=== PATIENT | male | born 1965 | race Caucasian/White ===

== ENCOUNTER 2024-11-10 14:09 | Inpatient (IN) | payer OTHER ==
[2024-11-10] VITALS (36 sets, daily range): BP systolic 115–187; BP diastolic 79–159; PULSE 90–122; RESP 17–48; TEMP 36.6–37.1408; O2SAT 87–100
[~2024-11-10] VITALS: Ht 170.2 cm; Wt 102.5 kg
[2024-11-10] MEDS: METOPROLOL TARTRATE 5MG/5ML VIAL IV ONE (14:21)
[2024-11-10] MEDS: METOPROLOL TARTRATE 5MG/5ML VIAL IV STA (14:30)
[2024-11-10] MEDS: HEPARIN 5000 UNITS/ML VIAL IV ONE (14:30)
[2024-11-10 14:39] LABS: BASOPHILS % 0.4 % (0.0-2.0); EOSINOPHILS % 0.2 % (0.0-5.0); HEMATOCRIT. 36.3 % (42.0-52.0); HEMOGLOBIN. 12.2 g/dL (14.0-18.0); LYMPHOCYTES % 16.9 % (20.0-50.0); MEAN PLATELET VOLUME 8.4 fl (7.4-10.4); MONOCYTES % 8.2 % (2.0-8.0); NEUTROPHILS % 74.3 % (40.0-76.0); PLATELET 366 x1000/uL (130-400); RED BLOOD CELL COUNT 4.41 mill/uL (4.7-6.1); RED CELL DISTRIBUTION WIDTH 14.1 % (11.6-14.6)
[2024-11-10] MEDS ORDERED: HEPARIN 1000 UNITS/ML 10ML ONE ×2 (14:44→14:55)
[2024-11-10] MEDS ORDERED: FENTANYL CITRATE/PF 50MCG/ML 2ML VIAL ONE (14:44)
[2024-11-10] MEDS ORDERED: IODIXANOL 320 MG/ML 150ML BOTTLE IV ONE (14:44)
[2024-11-10] MEDS ORDERED: MIDAZOLAM HCL 2 MG/2 ML VIAL ONE (14:44)
[2024-11-10] MEDS ORDERED: LIDOCAINE HCL 1% 20ML VIAL ONE (14:45)
[2024-11-10 14:50] LABS: INR 1.2
[2024-11-10 14:54] LABS: CREATININE 1.0 mg/dL (0.6-1.3); UREA NITROGEN BLOOD 18 mg/dL (9-23)
[2024-11-10 14:56] LABS: ASPARTATE AMINOTRANSFERASE 31 IU/L (<34); BILIRUBIN DIRECT 0.2 mg/dL (<=3.0)
[2024-11-10 14:57] LABS: BILIRUBIN TOTAL 0.7 mg/dL (0.1-1.0); PROTEIN TOTAL 6.8 g/dL (6.0-8.3)
[2024-11-10] MEDS ORDERED: IODIXANOL 320MG/ML 100 ML BOTTLE IV ONE (15:17)
[2024-11-10] MEDS ORDERED: EPTIFIBATIDE 2 MG/ML 10ML VIAL IV ONE ×2 (15:20→17:30)
[2024-11-10 15:27] LABS: TROPONIN I HIGH SENSITIVITY 3669 ng/L (3.0-53)
[2024-11-10] MEDS ORDERED: ONDANSETRON HCL 4MG/2ML INJ IV PRN (15:30)
[2024-11-10] MEDS ORDERED: DEXTROSE 50% WATER 50ML SYRINGE IV PRN (15:30)
[2024-11-10] MEDS ORDERED: ACETAMINOPHEN 325MG TABLET PO PRN ×3 (15:30→16:00)
[2024-11-10] MEDS ORDERED: DOCUSATE SODIUM 100MG CAPSULE PO PRN (15:30)
[2024-11-10] MEDS ORDERED: MAGNESIUM/ALUMINUM HYDROXIDE/SIMETHICONE 30ML UDC PO PRN (15:30)
[2024-11-10] MEDS ORDERED: GUAIFENESIN 200MG/10ML SUGAR FREE UDC PO PRN (15:30)
[2024-11-10] MEDS ORDERED: EPTIFIBATIDE 100 ML IV ONE (15:33)
[2024-11-10] MEDS ORDERED: CLOPIDOGREL 75MG TABLET ONE (15:36)
[2024-11-10] MEDS ORDERED: ATROPINE SULFATE 1MG/10ML SYR IV PRN (16:00)
[2024-11-10] MEDS: ASPIRIN 81MG EC TABLET PO NR (16:51)
[2024-11-10] MEDS: CARVEDILOL 6.25 MG TABLET PO NR (16:51)
[2024-11-10] MEDS: BLOOD SUGAR DIAGNOSTIC STRIP TEST SCH (17:50)
[2024-11-10] MEDS: INSULIN LISPRO 100 UNITS/ML SUBCUT SCH (18:20)
[2024-11-10] MEDS: IPRATROPIUM/ALBUTEROL 0.5-3(2.5)MG/3ML NEB HHN PRN (18:28)
[2024-11-10] MEDS ORDERED: FUROSEMIDE 40MG/4 ML UDC PO ONE (18:30)
[2024-11-10] MEDS: NITROGLYCERIN 0.4MG TABLET SL SL PRN (18:51)
[2024-11-10 19:06] LABS: BG BASE EXCESS -4.5 mmol/L (-2.0-3.0); BG CARBOXYHEMOGLOBIN 0.8 % (0.5-1.5); BG DEOXYHEMOGLOBIN 16.2 % (0.0-5.0); BG FLOW(L/min) 5.00 L/min; BG FRACTION INSPIRED OXYGEN 40; BG HCO3 ACT 21.1 mmol/L (21.0-28.0); BG METHEMOGLOBIN 0.3 % (0.5-1.5); BG OXYGEN SATURATION 83.6 % (94.0-98.0); BG OXYHEMOGLOBIN 82.7 % (94.0-98.0); BG PCO2 40.9 mmHg (35.0-48.0); BG PH 7.331 (7.350-7.450); BG PO2 56.1 mmHg (83.0-108.0); BG SAMPLE SITE LEFT RADIAL; BG TOTAL HEMOGLOBIN 13.7 g/dL (13.5-17.5); BG VENT MODE NASAL CANNULA
[2024-11-10] MEDS: FUROSEMIDE 40MG/4ML VIAL IVP SCH (19:17)
[2024-11-10] MEDS: EPTIFIBATIDE 100 ML IV SCH (19:23)
[2024-11-10] MEDS: FUROSEMIDE 100MG/10ML VIAL IVP NR (19:29)
[2024-11-10] MEDS: FUROSEMIDE 100 MG in SODIUM CHLORIDE 0.9% 90 ML IV PRN (19:30)
[2024-11-10] MEDS: NITROGLYCERIN 50MG PREMIX 250 ML IV PRN (19:30)
[2024-11-10] MEDS: ATORVASTATIN CALCIUM 40MG TABLET PO SCH (21:27)
[2024-11-10 23:19] LABS: TROPONIN I HIGH SENSITIVITY 5416 ng/L (3.0-53)
[2024-11-10 23:41] LABS: BG BASE EXCESS 3.4 mmol/L (-2.0-3.0); BG CARBOXYHEMOGLOBIN 1.0 % (0.5-1.5); BG DEOXYHEMOGLOBIN 5.0 % (0.0-5.0); BG FLOW(L/min) 5.00 L/min; BG FRACTION INSPIRED OXYGEN 40; BG HCO3 ACT 26.3 mmol/L (21.0-28.0); BG METHEMOGLOBIN 0.3 % (0.5-1.5); BG OXYGEN SATURATION 94.9 % (94.0-98.0); BG OXYHEMOGLOBIN 93.7 % (94.0-98.0); BG PCO2 34.8 mmHg (35.0-48.0); BG PH 7.497 (7.350-7.450); BG PO2 75.6 mmHg (83.0-108.0); BG SAMPLE SITE LEFT BRACHIAL; BG TOTAL HEMOGLOBIN 13.5 g/dL (13.5-17.5); BG VENT MODE NASAL CANNULA
[2024-11-10 23:55] LABS: HEPATITIS C AB NON REACTIVE (Neg) (Negative)
[2024-11-11] VITALS (101 sets, daily range): BP systolic 96–148; BP diastolic 57–110; PULSE 91–145; RESP 15–36; TEMP 36.3–36.7; O2SAT 90–99
[2024-11-11] MEDS ORDERED: IPRATROPIUM/ALBUTEROL 0.5-3(2.5)MG/3ML NEB HHN SCH
[2024-11-11 00:47] LABS: CREATININE 1.1 mg/dL (0.6-1.3); UREA NITROGEN BLOOD 18 mg/dL (9-23)
[2024-11-11 02:28] LABS: BASOPHILS % 0.4 % (0.0-2.0); EOSINOPHILS % 0.5 % (0.0-5.0); HEMATOCRIT. 36.1 % (42.0-52.0); HEMOGLOBIN. 12.0 g/dL (14.0-18.0); LYMPHOCYTES % 17.0 % (20.0-50.0); MEAN PLATELET VOLUME 8.3 fl (7.4-10.4); MONOCYTES % 10.5 % (2.0-8.0); NEUTROPHILS % 71.6 % (40.0-76.0); PLATELET 313 x1000/uL (130-400); RED BLOOD CELL COUNT 4.41 mill/uL (4.7-6.1); RED CELL DISTRIBUTION WIDTH 14.1 % (11.6-14.6)
[2024-11-11] MEDS ORDERED: AMIODARONE 360MG/200ML 200 ML IV SCH (05:00)
[2024-11-11] MEDS: AMIODARONE HCL 900 MG in DEXT 5% WATER 500 ML IV SCH (05:37)
[2024-11-11] MEDS: FUROSEMIDE 40MG/4ML VIAL IVP SCH (06:20)
[2024-11-11 07:36] LABS: BASOPHILS % 0.6 % (0.0-2.0); EOSINOPHILS % 1.0 % (0.0-5.0); HEMATOCRIT. 34.5 % (42.0-52.0); HEMOGLOBIN. 11.8 g/dL (14.0-18.0); LYMPHOCYTES % 19.3 % (20.0-50.0); MEAN PLATELET VOLUME 8.7 fl (7.4-10.4); MONOCYTES % 10.9 % (2.0-8.0); NEUTROPHILS % 68.2 % (40.0-76.0); PLATELET 311 x1000/uL (130-400); RED BLOOD CELL COUNT 4.24 mill/uL (4.7-6.1); RED CELL DISTRIBUTION WIDTH 13.8 % (11.6-14.6)
[2024-11-11 07:38] LABS: CREATININE 1.0 mg/dL (0.6-1.3)
[2024-11-11 07:41] LABS: LDL CHOLESTEROL 110 mg/dL (5-100); TRIGLYCERIDE 106 mg/dL (0-150); UREA NITROGEN BLOOD 18 mg/dL (9-23)
[2024-11-11] MEDS: CLOPIDOGREL 75MG TABLET PO SCH (08:44)
[2024-11-11] MEDS: PANTOPRAZOLE SODIUM 40 MG/VIAL IV SCH (08:44)
[2024-11-11] MEDS: POTASSIUM CHLORIDE 20MEQ TABLET SR PO NR (09:05)
[2024-11-11] MEDS ORDERED: FENTANYL CITRATE/PF 50MCG/ML 2ML VIAL IV NR (09:15)
[2024-11-11] MEDS: BLOOD SUGAR DIAGNOSTIC STRIP TEST SCH (17:29)
[2024-11-11] MEDS: AMIODARONE 360MG/200ML 200 ML IV SCH (19:01)
[2024-11-11] MEDS: ENOXAPARIN 100MG/ML SYR SUBCUT SCH (21:07)
[2024-11-11] MEDS: INSULIN GLARGINE 100 UNITS/ML SUBCUT SCH (21:08)
[2024-11-12] VITALS (107 sets, daily range): BP systolic 82–174; BP diastolic 44–148; PULSE 84–128; RESP 12–34; TEMP 36.6–36.8; O2SAT 87–100
[2024-11-12 07:13] LABS: CREATININE 1.1 mg/dL (0.6-1.3)
[2024-11-12 07:14] LABS: UREA NITROGEN BLOOD 22 mg/dL (9-23)
[2024-11-12 07:29] LABS: PLATELET 318 x1000/uL (130-400); RED BLOOD CELL COUNT 4.51 mill/uL (4.7-6.1); RED CELL DISTRIBUTION WIDTH 14.0 % (11.6-14.6)
[2024-11-12] MEDS: INSULIN LISPRO 100 UNITS/ML SUBCUT SCH (07:50)
[2024-11-12] MEDS: ASPIRIN 81MG TABLET PO SCH (08:29)
[2024-11-12] MEDS: POTASSIUM CHLORIDE 20MEQ TABLET SR PO SCH (08:29)
[2024-11-12 15:15] LABS: PHOSPHORUS 4.4 mg/dL (2.5-4.9)
[2024-11-12] MEDS: METOPROLOL TARTRATE 25MG TABLET PO SCH (22:10)
[2024-11-13] VITALS (85 sets, daily range): BP systolic 89–192; BP diastolic 46–157; PULSE 72–99; RESP 12–37; TEMP 36.7–37.1; O2SAT 87–99
[2024-11-13 06:04] LABS: BASOPHILS % 0.6 % (0.0-2.0); EOSINOPHILS % 2.9 % (0.0-5.0); HEMATOCRIT. 36.2 % (42.0-52.0); HEMOGLOBIN. 12.3 g/dL (14.0-18.0); LYMPHOCYTES % 26.6 % (20.0-50.0); MEAN PLATELET VOLUME 8.3 fl (7.4-10.4); MONOCYTES % 10.0 % (2.0-8.0); NEUTROPHILS % 59.9 % (40.0-76.0); PLATELET 316 x1000/uL (130-400); RED BLOOD CELL COUNT 4.49 mill/uL (4.7-6.1); RED CELL DISTRIBUTION WIDTH 13.8 % (11.6-14.6)
[2024-11-13 06:18] LABS: CREATININE 1.2 mg/dL (0.6-1.3); UREA NITROGEN BLOOD 25 mg/dL (9-23)
[2024-11-13] MEDS: AMIODARONE 200MG TABLET PO SCH (09:44)
[2024-11-13] MEDS: INSULIN GLARGINE 100 UNITS/ML SUBCUT SCH (21:21)
[2024-11-14] VITALS: BP 103/80; PULSE 74; RESP 25; TEMP 36.7; O2SAT 98
[2024-11-14 04:00] VITALS: BP 111/71; PULSE 74; RESP 20; TEMP 36.6; O2SAT 97
[2024-11-14] MEDS: INSULIN LISPRO 100 UNITS/ML SUBCUT SCH (06:32)
[2024-11-14 06:57] LABS: CREATININE 1.1 mg/dL (0.6-1.3); UREA NITROGEN BLOOD 21 mg/dL (9-23)
[2024-11-14 08:00] VITALS: BP 136/95; PULSE 77; RESP 16; TEMP 36.7; O2SAT 97
[2024-11-14] MEDS ORDERED: CLOP-31 PO (10:48)
[2024-11-14] MEDS ORDERED: LIP40 PO (10:48)
[2024-11-14] MEDS ORDERED: FAMO-135 MT (10:48)
[2024-11-14] MEDS ORDERED: AMI2 PO (10:48)
[2024-11-14] MEDS ORDERED: METO25TA6 PO (10:48)
[2024-11-14] MEDS ORDERED: FURO-151 MT (10:48)
[2024-11-14] MEDS ORDERED: APIX5TAB MT (10:48)
[2024-11-14] MEDS ORDERED: POTA-189 PO (10:51)
[2024-11-14 11:14] VITALS: BP 136/95; PULSE 77; RESP 16; TEMP 98
[2024-11-14 12:00] VITALS: BP 119/91; PULSE 80; RESP 18; TEMP 36.6; O2SAT 97
== END 2024-11-14 15:50 | disposition home or self-care (01) | DRG 174 ==
LOC: ER 14:09 → CVICU 14:40 → ENRESERV 15:29 → 3WST 11-13 22:13
PROVIDERS: ADMIT Hospitalist; ATTEND Hospitalist
PROC: 027035Z Dilation of Coronary Artery, One Artery with Two Drug-eluting Intraluminal Devices, Percutaneous Approach (ICD-10-PCS; principal; 2024-11-10)
PROC: B240ZZ3 Ultrasonography of Single Coronary Artery, Intravascular (ICD-10-PCS; 2024-11-10)
PROC: 4A023N7 Measurement of Cardiac Sampling and Pressure, Left Heart, Percutaneous Approach (ICD-10-PCS; 2024-11-10)
PROC: B211YZZ Fluoroscopy of Multiple Coronary Arteries using Other Contrast (ICD-10-PCS; 2024-11-10)
PROC: B215YZZ Fluoroscopy of Left Heart using Other Contrast (ICD-10-PCS; 2024-11-10)
DX: I21.09 ST elevation (STEMI) myocardial infarction involving other coronary artery of anterior wall (principal); J96.01 Acute respiratory failure with hypoxia; I50.9 Heart failure, unspecified; I11.0 Hypertensive heart disease with heart failure; E78.5 Hyperlipidemia, unspecified; E11.9 Type 2 diabetes mellitus without complications; E87.6 Hypokalemia; D64.9 Anemia, unspecified; I48.91 Unspecified atrial fibrillation; I25.10 Atherosclerotic heart disease of native coronary artery without angina pectoris; I25.2 Old myocardial infarction; Z79.02 Long term (current) use of antithrombotics/antiplatelets; Z79.4 Long term (current) use of insulin; Z79.82 Long term (current) use of aspirin; Z79.84 Long term (current) use of oral hypoglycemic drugs; Z79.899 Other long term (current) drug therapy
CPT/HCPCS: 36415; 36600; 71045; 71250; 80048; 80061; 80076; 82375; 82805; 82962; 83036; 83735; 83880; 84100; 84145; 84484; 85025; 85027; 85347; 86705; 86850; 86900; 87340; 92928; 92978; 93005; 93306; 93458; 93970; 94640; 96374; 96375; 99291; A4606; C1725; C1753; C1769; C1887; C1893; J0282; J1327; J1644; J1650; J1815; J1938; J2003; J2250; J2470; J3010; J3490; J7060; Q9967